=== PATIENT | female | born 1960 ===

== ENCOUNTER 2024-03-26 04:14 | Day surgery (SDC) | payer OTHER ==
[2024-03-23 13:20] VITALS: BMI 28.2
[2024-03-26] MEDS ORDERED: PROPOFOL 40 ML ONE (13:14)
[2024-03-26] MEDS ORDERED: SUCCINYLCHOLINE CHLORIDE 200 MG/10 ML SYRINGE ONE (13:15)
[2024-03-26] MEDS ORDERED: MIDAZOLAM HCL 2 MG/2 ML SINGLE DOSE VIAL ONE (13:15)
[2024-03-26] MEDS ORDERED: FENTANYL CITRATE/PF 50 MCG/ML VIAL ONE ×2 (13:15→13:40)
[2024-03-26] MEDS: ceFAZolin SODIUM 1 GM VIAL IVPB ONE (13:31)
[2024-03-26] MEDS ORDERED: ALBUTEROL SO4 HFA INHALER IH ONE (14:23)
[2024-03-26] MEDS ORDERED: ONDANSETRON 4 MG/2 ML VIAL IVPUSH PRN (14:45)
[2024-03-26] MEDS ORDERED: oxyCODONE HCL 5 MG TABLET PO PRN (14:45)
[2024-03-26] MEDS: LACTATED RINGERS SOLUTION 1,000 ML IV SCH (15:30)
[2024-03-26 16:11] VITALS: BP 144/92; PULSE 60; RESP 18; TEMP 97.8
== END 2024-03-26 16:55 | disposition home or self-care (01) ==
LOC: JASU-SURG 04:14
PROVIDERS: ATTEND Urology
PROC: 0TC18ZZ Extirpation of Matter from Left Kidney, Via Natural or Artificial Opening Endoscopic (ICD-10-PCS; principal; 2024-03-26 13:00)
PROC: 0T778DZ Dilation of Left Ureter with Intraluminal Device, Via Natural or Artificial Opening Endoscopic (ICD-10-PCS; 2024-03-26 13:00)
DX: N13.2 Hydronephrosis with renal and ureteral calculous obstruction (principal)
CPT/HCPCS: 76000-TC-FY; 82962; 94760; C1747; C1758; C2617